=== PATIENT | male | born 1980 | race Caucasian/White ===

== ENCOUNTER 2020-10-29 07:04 | Outpatient (REF) | payer OTHER, SELFPAY ==
[2020-10-29 07:47] LABS: MANUAL DIFF FLAG NO
[2020-10-29 07:58] LABS: Basophils Absolute Auto 0.1 X10*3/uL (0.0-0.2); Basophils Percent Auto 1.2 % (0-2); Eosinophils Absolute Auto 0.1 X10*3/uL (0.0-0.4); Hemoglobin 14.4 g/dl (14.0-18.0); Imm Gran Abs Auto 0.03 X10*3/uL (0.00-0.03); Imm Gran Pct Auto 0.6 % (0.0-0.4); Lymphocytes Percent Auto 40.7 % (20-40); Mean Corpuscular HGB Conc 33.5 g/dl (31.0-36.0); Mean Corpuscular Hemoglobin 30.2 pg (27.0-33.0); Mean Corpuscular Volume 90.1 fL (80-98); Mean Platelet Volume 11.3 fL (9.4-12.4); Monocytes Absolute Auto 0.5 X10*3/uL (0.1-1.2); Neutrophils Absolute Auto 2.2 X10*3/uL (2.0-8.3); Neutrophils Percent Auto 44.5 % (45-73); Platelet Count 269 X10*3/uL (160-400); Red Blood Count 4.77 X10*6/uL (4.60-5.80); Red Cell Distribution Width 12.2 % (11.0-16.0); White Blood Count 4.9 X10*3/uL (4.8-10.8)
[2020-10-29 08:15] LABS: Glucose Urine UA NEG (NEG); Leukocyte Esterase Urine NEG (NEG); Nitrite Urine NEG (NEG); Specific Gravity - Urine 1.025 (1.005-1.025); Urine Blood NEG (NEG); Urine Ketones NEG (NEG); Urine Protein NEG (NEG-TRACE)
[2020-10-29 08:20] LABS: Appearance Urine CLEAR; Color Urine YELLOW
[2020-10-29 08:22] LABS: Alanine Aminotransferase 21 U/L (0-40); Albumin Level 4.5 g/dL (3.5-5.0); Alkaline Phosphatase 41 U/L (39-117); Anion Gap 13 (12-20); Aspartate Amino Transferase 15 U/L (5-37); Bilirubin Total 0.6 mg/dL (0.0-1.0); Blood Urea Nitrogen 12 mg/dL (9-16); Calcium 9.1 mg/dL (8.4-10.2); Carbon Dioxide 26 mmol/L (22-29); Chloride 105 mmol/L (96-108); Cholesterol 206 mg/dL; Estimated Glomerular Filt Rate > 60; Glucose Fasting 93 mg/dL (60-99); HDL Cholesterol 43 mg/dL; LDL Cholesterol Calculated 143 mg/dl; Potassium 4.3 mmol/L (3.3-5.1); Sodium 140 mmol/L (135-145); Total Protein 6.8 g/dL (6.5-8.0); Triglycerides 104 mg/dL
== END 2020-10-29 07:05 | disposition home or self-care (01) ==
LOC: HO.LAB 07:04
PROVIDERS: PCP Internal Medicine; Visit Provider Internal Medicine
DX: Z00.00 Encounter for general adult medical examination without abnormal findings (principal); E78.00 Pure hypercholesterolemia, unspecified
CPT/HCPCS: 36415; 80053; 80061; 81003; 85025

== ENCOUNTER 2022-10-22 10:13 | Outpatient (REF) | payer OTHER, SELFPAY ==
[2022-10-22 10:16] LABS: MANUAL DIFF FLAG NO
[2022-10-22 10:54] LABS: Appearance Urine Clear; Color Urine Yellow; Glucose Urine UA Negative (Negative); Leukocyte Esterase Urine Negative (Negative); Nitrite Urine Negative (Negative); PH 6.5 (5.0-9.0); Specific Gravity - Urine <= 1.005 (1.005-1.025); Urine Blood Negative (Negative); Urine Ketones Negative (Negative); Urine Protein Negative (Neg-Trace)
[2022-10-22 11:04] LABS: Basophils Absolute Auto 0.1 X10*3/uL (0.0-0.2); Eosinophils Absolute Auto 0.2 X10*3/uL (0.0-0.4); Eosinophils Percent Auto 2.4 % (0-4); Hematocrit 46.5 % (42.0-52.0); Hemoglobin 15.5 g/dl (14.0-18.0); Imm Gran Abs Auto 0.05 X10*3/uL (0.00-0.03); Imm Gran Pct Auto 0.7 % (0.0-0.4); Lymphocytes Absolute Auto 2.5 X10*3/uL (1.2-4.9); Lymphocytes Percent Auto 36.3 % (20-40); Mean Corpuscular HGB Conc 33.3 g/dl (31.0-36.0); Mean Corpuscular Hemoglobin 30.2 pg (27.0-33.0); Mean Corpuscular Volume 90.6 fL (80.0-98.0); Mean Platelet Volume 11.5 fL (9.4-12.4); Monocytes Absolute Auto 0.8 X10*3/uL (0.1-1.2); Monocytes Percent Auto 11.9 % (2-11); Neutrophils Absolute Auto 3.2 x10*3/uL (2.0-8.3); Neutrophils Percent Auto 47.7 % (45-73); Platelet Count 301 X10*3/uL (160-400); Red Blood Count 5.13 X10*6/uL (4.60-5.80); White Blood Count 6.8 X10*3/uL (4.8-10.8)
[2022-10-22 11:09] LABS: Alanine Aminotransferase 33 U/L (0-40); Albumin Level 4.7 g/dL (3.5-5.0); Alkaline Phosphatase 49 U/L (39-117); Anion Gap 13 (12-20); Aspartate Amino Transferase 23 U/L (5-37); Blood Urea Nitrogen 11 mg/dL (9-16); Calcium 9.9 mg/dL (8.4-10.2); Carbon Dioxide 27 mmol/L (22-29); Chloride 104 mmol/L (96-108); Cholesterol 230 mg/dL; Estimated Glomerular Filt Rate > 60; Glucose Fasting 98 mg/dL (60-99); HDL Cholesterol 39 mg/dL; LDL Cholesterol Calculated 162 mg/dl; Potassium 4.5 mmol/L (3.3-5.1); Sodium 139 mmol/L (135-145); Total Protein 7.1 g/dL (6.5-8.0); Triglycerides 149 mg/dL
== END 2022-10-22 10:14 | disposition home or self-care (01) ==
LOC: HO.LNP 10:13
PROVIDERS: Visit Provider Internal Medicine
DX: Z00.00 Encounter for general adult medical examination without abnormal findings (principal); Z12.5 Encounter for screening for malignant neoplasm of prostate; E78.00 Pure hypercholesterolemia, unspecified
CPT/HCPCS: 80053; 80061; 81003; 84153; 85025

== ENCOUNTER 2024-05-04 11:26 | Outpatient (REF) | payer OTHER, SELFPAY ==
[2024-05-04 11:30] LABS: MANUAL DIFF FLAG NO
[2024-05-04 11:36] LABS: Basophils Absolute Auto 0.1 X10*3/uL (0.0-0.2); Basophils Percent Auto 1.4 % (0-2); Eosinophils Absolute Auto 0.1 X10*3/uL (0.0-0.4); Eosinophils Percent Auto 2.3 % (0-4); Hematocrit 45.4 % (42.0-52.0); Hemoglobin 15.5 g/dl (14.0-18.0); Imm Gran Abs Auto 0.02 X10*3/uL (0.00-0.03); Imm Gran Pct Auto 0.3 % (0.0-0.4); Lymphocytes Absolute Auto 2.1 X10*3/uL (1.2-4.9); Lymphocytes Percent Auto 36.4 % (20-40); Mean Corpuscular HGB Conc 34.1 g/dl (31.0-36.0); Mean Corpuscular Hemoglobin 30.8 pg (27.0-33.0); Mean Corpuscular Volume 90.1 fL (80.0-98.0); Mean Platelet Volume 11.4 fL (9.4-12.4); Monocytes Absolute Auto 0.7 X10*3/uL (0.1-1.2); Monocytes Percent Auto 12.9 % (2-11); Neutrophils Absolute Auto 2.7 x10*3/uL (2.0-8.3); Neutrophils Percent Auto 46.7 % (45-73); Platelet Count 274 X10*3/uL (160-400); Red Blood Count 5.04 X10*6/uL (4.60-5.80); Red Cell Distribution Width 12.7 % (11.0-16.0); White Blood Count 5.7 X10*3/uL (4.8-10.8)
[2024-05-04 11:40] LABS: Appearance Urine Clear; Color Urine Yellow; Glucose Urine UA Negative (Negative); Leukocyte Esterase Urine Negative (Negative); Nitrite Urine Negative (Negative); PH 5.5 (5.0-9.0); Urine Blood Negative (Negative); Urine Ketones Negative (Negative); Urine Protein Negative (Neg-Trace)
[2024-05-04 11:46] LABS: Bacteria Urine None Seen (None Seen); Hyaline Casts Urine 0-2 /LPF (0-2); RBC Urine 0-2 /HPF (0-2); Squamous Epithelial Cell Urine 0-2 /HPF (0-2); WBC Urine 0-5 /HPF (0-5)
[2024-05-04 11:48] LABS: Alanine Aminotransferase 27 U/L (0-40); Albumin Level 4.6 g/dL (3.5-5.0); Alkaline Phosphatase 42 U/L (39-117); Anion Gap 11 (12-20); Aspartate Amino Transferase 21 U/L (5-37); Bilirubin Total 0.7 mg/dL (0.0-1.0); Blood Urea Nitrogen 15 mg/dL (9-16); Calcium 9.4 mg/dL (8.4-10.2); Carbon Dioxide 26 mmol/L (22-29); Chloride 107 mmol/L (96-108); Cholesterol 201 mg/dL (<200); Estimated Glomerular Filt Rate > 60; Glucose Fasting 96 mg/dL (60-99); HDL Cholesterol 42 mg/dL (>40); LDL Cholesterol Calculated 128 mg/dL (<100); Potassium 4.1 mmol/L (3.3-5.1); Sodium 140 mmol/L (135-145); Total Protein 7.1 g/dL (6.5-8.0); Triglycerides 156 mg/dL (<150)
== END 2024-05-04 11:27 | disposition home or self-care (01) ==
LOC: HO.LNP 11:26
PROVIDERS: Visit Provider Internal Medicine
DX: Z00.00 Encounter for general adult medical examination without abnormal findings (principal); E78.00 Pure hypercholesterolemia, unspecified
CPT/HCPCS: 80053; 80061; 81001; 85025

== ENCOUNTER 2024-05-11 14:44 | Outpatient (REF) | payer OTHER, SELFPAY ==
--- NOTE | ~2024-05-11 | XR_ITS ---
EXAMINATION: XR FINGER, RIGHT CLINICAL INFORMATION: Right finger mass COMPARISON: None available. TECHNIQUE: 4 views of the right middle finger including AP view of the hand FINDINGS: Middle finger: Slight prominence of the soft tissues dorsally at the end CP joint. No calcification Bones joints and soft tissues otherwise unremarkable. On the AP view of the hand there is mild arthrosis of the triscaphoid joint manifested by a subchondral cyst at the base of the trapezium XR/XR finger RT min 2V IMPRESSION: Slight prominence of the soft tissues dorsally at the MCP joint of the middle finger. This could reflect a soft tissue mass or normal variation. Electronically signed by: Jayro Arias MD 05/14/2024 08:36 PM EDT
[2024-05-11 16:02] LABS: PSA,Total (Free>4and<10) 0.86 ng/mL (0.00-4.00)
== END 2024-05-11 14:45 | disposition home or self-care (01) ==
LOC: HO.XRAY 14:44
PROVIDERS: PCP Internal Medicine; Visit Provider Internal Medicine
DX: R22.31 Localized swelling, mass and lump, right upper limb (principal); Z12.5 Encounter for screening for malignant neoplasm of prostate; E78.00 Pure hypercholesterolemia, unspecified; Z00.00 Encounter for general adult medical examination without abnormal findings
CPT/HCPCS: 36415; 73140; 84153

== ENCOUNTER 2024-06-06 14:32 | Outpatient (AMB) | payer OTHER, SELFPAY ==
--- NOTE | 2024-06-06 14:35 | A.OFFVIS_ITS ---
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 Patient reports it feels tight when making a fist. He reports it has not changed in size or color. Denies numbness or tingling. Denies locking on finger. 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 The patient reports that in October, he noticed this mass, and states that it may have grown a little bit since he noticed it, but states that it has not changed in size for some time. Patient reports that this mass is nonpainful, nontender, and only occasionally bothers him when he ?wax it against something? patient reports that the mass has never opened, does not bleed, and that there is no further evidence of any sort of infection. No numbness or tingling in the right upper extremity. No other acute complaints or concerns at this time. 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 Neuro: Normal sensation of the tips of all digits of the right hand at this time. Vascular: Cap refill brisk Pain: No tenderness to palpation at or about the mass present on the dorsal aspect of the right middle finger PIP joint Patient reports no pain with range of motion ROM: Patient is able to make a closed fist and extend all digits of the right hand fully and without difficulty Skin: No lacerations or abrasions. General: There is noted to be a small, approximately 0.5 cm by 1 cm mass noted on the dorsal aspect of the PIP joint of the right middle finger Mass is firm to palpation, non fluctuant, does not feel fluid filled, but rather solid No ecchymosis, erythema, or evidence of infection. No telangiectasias noted Psych: Appears grossly normal Affect normal Attitude cooperative Results Reviewed Results Reviewed: X-rays obtained on 05/11/2024 and independently reviewed by me, García Flores, demonstrate soft tissue prominence at the level of the mass, but no fracture or acute bony abnormality. Assessment & Plan Assessment & Plan (1) Mass of finger of right hand: Code(s): R22.31 - Localized swelling, mass and lump, right upper limb Category: Medical Plan 1. Mass of right middle finger Present since approximately October At this time, my index of suspicion that this mass is a ganglion cyst is quite low, due to the firm, solid nature of the mass and lack of fluctuance Due to this, the patient is referred to Dr. Teixeira for further evaluation and discussion of treatment options Patient is amenable to this plan Patient will follow-up with Dr. Teixeira in next available appointment, sooner with any acute concerns Coding Level of Care Code New Pt Level 3 (42454) Diagnoses Mass of finger of right hand R22.31
[2024-06-06 14:40] VITALS: BMI 32.3
== END 2024-06-06 15:12 | disposition home or self-care (01) ==
PROVIDERS: PCP Internal Medicine
DX: R22.31 Localized swelling, mass and lump, right upper limb (principal)
CPT/HCPCS: 99203

== ENCOUNTER → 2024-06-06 14:32 | Outpatient (BNVA) | payer OTHER, SELFPAY | PROVIDERS: PCP Internal Medicine ==

== ENCOUNTER 2024-06-28 09:33 | Outpatient (AMB) | payer OTHER, SELFPAY ==
--- NOTE | 2024-06-28 09:34 | A.OFFVIS_ITS ---
Intake Visit Reasons: OV-Right middle finger mass Intake Note: Thien is a 43 year old right hand dominant male who presents today for evaluation of a right middle finger mass at the DIP joint, first noticed about 5-6 months ago. Patient reports it feels tight when making a fist. He reports it has not changed in size or color. Denies numbness or tingling. Denies locking on finger. Allergies No Known Allergies Allergy (Verified 06/06/24 14:39) HPI HPI OV-Right middle finger mass: Details: Thien is a 43 year old right hand dominant man who presents for a right middle finger mass. He complains of a mass on the dorsal aspect of of his middle finger PIP joint. He says this has been present for ~8 months now. He denies any drainage or pain, and says it has not been increasing in size. He says it only hurts him if he hits it against a surface. He says he feels some tightness with prolonged activity when he lets his hands hang, such as on a hike. He denies any prior treatment options He denies any numbness, tingling, locking, or catching. 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 Review of Systems Const All systems reviewed & are unremarkable except as noted in HPI and below Physical Exam Const General: cooperative, healthy appearing and no acute distress Orientation/consciousness: patient oriented x3 HEENT Head: Yes normocephalic and Yes atraumatic Eyes EOM: EOMs intact bilaterally Resp Effort & Inspection: normal respiratory effort and able to speak in complete sentences Cardio Jugular venous distension: no JVD Skin General skin exam: turgor normal Rashes: no rashes Neuro General: patient oriented x3 Extrem Other: Evaluation of Right Upper Extremity: The patient is alert, oriented, and in no acute distress Neuro: Median, Ulnar, Radial nerves motor and sensory intact and sensation is normal to the tips of all digits Vascular: Cap refill brisk ROM: He can make a fist and extend all his digits No locking or catching Skin: No lacerations or abrasions. General: No Ecchymosis. No Erythema or evidence of infection. There is a mass on the dorsal aspect of the middle finger PIP joint, measuring ~1.2cm in diameter. This is non-tender & and the skin feels slightly mobile over the mass. Radiographs: 3 views of the right hand form 05/11/24 were reviewed by me today in clinic. They show no fractures or dislocations. There are no bony masses, and there appears to be a soft tissue mass over the dorsal aspect of the middle finger PIP joint. Psych Appearance: grossly normal Affect: normal affect Attitude: cooperative Assessment & Plan Assessment & Plan (1) Mass of finger of right hand: Code(s): R22.31 - Localized swelling, mass and lump, right upper limb Category: Medical Plan Assessment & Plan: 1. Right middle finger mass Dorsal aspect of the PIP joint Measuring ~1.2cm in diameter I educated him about this condition I discussed operative and non-operative treatment options The patient would like to proceed with surgery The risks and benefits of operative treatment were discussed with the patient and the patient wishes to proceed with surgery. These risks include, but are not limited to risk of damage to blood vessels, nerves, tendons, infection, recurrence, incomplete relief of preoperative symptoms, persistent pain, possible need for further surgery and the risks associated with regional blocks and anesthesia. The plan is to take the patient to the operating room sometime in the next few weeks for the following procedures: 1. Right middle finger dorsal mass excision, under local All of the preoperative paperwork including the consent was reviewed today. All the patient's questions were answered. The patient understands that they will be contacted by our manufacturing scheduler soon to schedule this procedure He denies Diabetes, blood thinners, asthma, heart, lung, kidney issues Scribed for Adelaide Teixeira MD by Masood Conde paramedical aide, on 06/28/24 at 10:00 AM, EST. Coding Level of Care Code Est Pt Level 4 (62319) Diagnoses Mass of finger of right hand R22.31
== END 2024-06-28 10:33 | disposition home or self-care (01) ==
PROVIDERS: PCP Internal Medicine; Visit Provider Orthopaedic Surgery
DX: R22.31 Localized swelling, mass and lump, right upper limb (principal)
CPT/HCPCS: 99214

== ENCOUNTER → 2024-06-28 09:33 | Outpatient (BNVA) | payer OTHER, SELFPAY | PROVIDERS: PCP Internal Medicine; Visit Provider Orthopaedic Surgery ==

== ENCOUNTER 2024-07-31 07:45 | Day surgery (SDC) | payer OTHER, SELFPAY ==
[2024-07-31 08:24] VITALS: BP 154/89; PULSE 72; RESP 18; TEMP 36.1; O2SAT 98; BMI 32.6
--- NOTE | 2024-07-31 10:01 | MHC.SHP ---
Pre-Procedural Eval Section A - 24 Hr Update-Section A only Date of Service: 07/31/24 The patient is an INPATIENT: No Changes since office visit: No Cold of Flu in the past 2 weeks, No New Medical Problems, No Changes in Medication and No Patient answered all questions The patient has been examined within 24 hours of the surgical procedure. The History & Physical has been completed within 30 days and I have reviewed it.: Yes Section B - Complete if H&P > 30 days Chief Complaint: Localized swelling, mass and lump, right upper mo Allergies: Allergies Allergy/AdvReac Type Severity Reaction Status Date / Time No Known Allergies Allergy Verified 06/06/24 14:39 Plan Diagnosis/Plan: Unchanged I have reviewed the history and physical and performed a pertinent physical examination on my patient. No changes have occurred unless specified. Time Spent With Patient Time: Total time managing care of this patient today ____ minutes.
--- NOTE | 2024-07-31 10:02 | P.OP_ITS ---
Operative Note Operative Note Date of Service: 07/31/24 Narrative: Operative Note Preop diagnosis: 1. Right middle finger soft tissue mass, dorsal aspect of PIP joint Postop diagnosis: same Procedure: 1. Right middle finger soft tissue mass excisional biopsy Surgeon: Adelaide Teixeira MD Vice President Media Relations: None Anesthesia: digital block using 1% lidocaine with epinephrine Findings: A white fibrous soft tissue mass was found dorsal to the middle finger PIP joint. It was not fluid filled. It was adherent to the dorsal aspect of the extensor mechanism and before it was excised it measured proximally 1 cm in length by 1.5 cm in width by perhaps 3-[address] idalmis active extension of the middle finger after excision of the mass. EBL: Less than 5 mL Tourniquet time: None Specimens: Right middle finger soft tissue mass sent for histopathology Complications: None Disposition: Brought to recovery room in stable condition Plan: Follow-up for 10-14 days for wound check and to check pathology The sutures should remain in place for between 2 and 3 weeks. He is seen at about 2 weeks, we can try removing every other suture before determining whether or not to remove the remaining sutures. Indications: The patient is 44 years old, with a soft tissue mass over the dorsal aspect of his right middle finger PIP joint . The risks and benefits of operative treatment including but not limited to risk of damage to blood vessels, nerves, tendons, infection, persistent pain, persistent symptoms, recurrence or possible need for additional surgery were discussed with the patient and the patient wishes to proceed with surgery. Procedure: Once consent was obtained a digital block was performed in the preop area using a combination of 1% lidocaine with epinephrine. The patient was then brought back to the operating suite and placed on the operative table in supine position. A tourniquet was applied to the proximal aspect of the right upper extremity and the limb was prepped and draped in a standard surgical fashion. Once assured that we had a good block, I made a dorsal longitudinal incision over the PIP joint of the right middle finger. The incision was made through the skin the subcutaneous tissues using a 15. Blade. I then carefully dissected down to the level of the soft tissue mass using tenotomy and iris scissors. A white fibrous soft tissue mass was found dorsal to the middle finger PIP joint. It was not fluid filled. It was adherent to the dorsal aspect of the extensor mechanism and before it was excised it measured proximally 1 cm in length by 1.5 cm in width by perhaps 3-4 mm in thickness. I carefully mobilized the mass from the dorsal aspect of the extensor mechanism using tenotomy and iris scissors. The mass was fairly adherent to the extensor mechanism with white fibrous adhesions. The mass was removed from the patient and placed on the back table to be sent for histopathology. Strong active extension of the middle finger was performed by the patient after excision of the mass and while on the table. No other masses were appreciated. Once satisfied with our excisional biopsy the wound was copiously irrigated with normal saline and hemostasis was obtained with a brief period of local pressure. The skin edges were reapproximated with some 4.0 Prolene suture material and a sterile dressing was applied. The patient appears to have tolerated the procedure well and with no comp lications. All digits were well vascularized at the conclusion of the case.
[2024-07-31 11:43] VITALS: BP 136/84; PULSE 82; RESP 20; O2SAT 99
== END 2024-07-31 11:43 | disposition home or self-care (01) ==
PROVIDERS: PCP Internal Medicine; Visit Provider Orthopaedic Surgery
PROC: (CPT 26111; principal; 2024-07-31 09:40)
DX: R22.31 Localized swelling, mass and lump, right upper limb (principal); M79.89 Other specified soft tissue disorders
CPT/HCPCS: 26111; 88304; 88305; J0171; J2003

== ENCOUNTER → 2024-07-31 07:45 | Outpatient (BNV) | payer OTHER, SELFPAY | PROVIDERS: PCP Internal Medicine; Visit Provider Orthopaedic Surgery | DX: R22.31 Localized swelling, mass and lump, right upper limb (principal) | CPT/HCPCS: 26111 ==

== ENCOUNTER 2024-08-15 12:32 | Outpatient (AMB) | payer OTHER, SELFPAY ==
--- NOTE | 2024-08-15 12:40 | A.OFFVIS_ITS ---
Vital Signs 08/15/24 13:05 Height 5 ft 6 in Weight 202 lb BMI 32.6 Intake Visit Reasons: PO RT MF dorsal PIP mass exc 07/31/24 AR Intake Note: Thien is a 43 yo right hand dominant male who presents today post operatively s/p right middle finger dorsal PIP mass excision done 07/31/[address] Teixeira. Denies numbness, tingling, or finger locking. Patient is doing well. He has returned to work. Sutures removed in office today and steri strips applied. Allergies No Known Allergies Allergy (Verified 08/15/24 13:06) HPI HPI PO RT MF dorsal PIP mass exc 07/31/24 AR: Details: Thien is a 43 year old right hand dominant man who returns S/P right middle finger excision of mass, DOS: 07/31/24 He says he is doing well overall and denies any pain He denies any numbness, tingling, locking, or catching. He says he has already returned to work at this time, without issue. 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 Sutures removed and Steri-Strips applied He can make a fist and extend all his digits Sensation is intact Cap refill is brisk Pathology report 07/31/24 Diagnosis Soft tissue, right middle finger, excision: Fragments of bland dense fibrous tissue with focal myxoid change; negative for malignancy. 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 No features of malignancy are seen Psych Appearance: grossly normal Affect: normal affect Attitude: cooperative Assessment & Plan Assessment & Plan (1) Fibroma of finger of right hand: Comment: R Code(s): D21.11 - Benign neoplasm of connective and other soft tissue of right upper limb, including shoulder Category: Medical Plan Assessment & Plan: 1. Right middle finger tendon sheath fibroma, S/P excision DOS: 07/31/24 The patient appears to be doing well post-operatively I educated him about the post-operative course I explained the signs and symptoms of infection I discussed activity modifications, he is to lift nothing heavier than a cellphone for the next two weeks He will perform gentle ROM exercises at home He should avoid any underwater activities for the next 5 days He should gently massage about the incision site to reduce the risk of hypersensitivity He can follow up prn Scribed for Adelaide Teixeira MD by Masood Conde, medical oncology physician, on 08/15/24 at 1:20 PM, EST. Coding Level of Care Code Global (47401) Diagnoses Fibroma of finger of right hand D21.11
[2024-08-15 13:05] VITALS: BMI 32.6
== END 2024-08-15 15:11 | disposition home or self-care (01) ==
PROVIDERS: PCP Internal Medicine; Visit Provider Orthopaedic Surgery
DX: D21.11 Benign neoplasm of connective and other soft tissue of right upper limb, including shoulder (principal)
CPT/HCPCS: 99024

== ENCOUNTER → 2024-08-15 12:32 | Outpatient (BNVA) | payer OTHER, SELFPAY | PROVIDERS: PCP Internal Medicine; Visit Provider Orthopaedic Surgery ==

== ENCOUNTER 2024-09-29 09:18 | Day surgery (SDC) | payer OTHER, SELFPAY ==
[2024-09-27 13:41] VITALS: BMI 32.6
--- NOTE | 2024-09-28 10:15 | P.CONAN_ITS ---
Documented by User: Rebecca Stevenson NP 09/28/24 10:15 HPI - Anesthesia Eval Consult details Narrative: 44yo M for Colonoscopy PMFSH Active Problems Active Problems: All Active Problems Fibroma of finger of right hand (Acute) Mass of finger of right hand (Acute) Past Medical History Medical History Renal calculi Surgical History Surgical History (Updated 09/29/24 @ 11:20 by Lacey Ledezma MD) [place] teeth extracted Hx of hand surgery Social History Social History Patient Tobacco Use Status: Never used Tobacco Use of substances other than those prescribed or required for medical reasons: Yes Substance Use Type Other:: last smoked yesterday Substance Use Frequency: Daily Are you DNR?: No Advance Directives: No Advance Directives Information Provided: Yes Current occupational status: employed 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, 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 Meds Allergies Allergy/AdvReac Type Severity Reaction Status Date / Time No Known Allergies Allergy Verified 09/29/24 10:16 Home Medications ?Medication ?Instructions ?Recorded ?Confirmed ?Last Taken ?Type No Known Home Meds 09/27/24 09/29/24 Unknown History Exam Height,Weight and Vital Signs: Height 5 ft 6 in Weight 91.626 kg Assessment and Plan Assessment Anesthesia Assessment: Chart Reviewed Documented by User: Lacey Ledezma MD 09/29/24 11:22 PMFSH Active Problems Active Problems: All Active Problems Fibroma of finger of right hand (Acute) Mass of finger of right hand (Acute) Daily Marijuana. Last yesterday 09/28/24 Past Medical History Medical History Renal calculi Family History Family history of problems with anesthesia: No Surgical History Surgical History (Updated 09/29/24 @ 11:20 by Lacey Ledezma MD) [place] teeth extracted Hx of hand surgery History of Problems with Anesthesia: No Social History Social History Patient Tobacco Use Status: Never used Tobacco Use of substances other than those prescribed or required for medical reasons: Yes Substance Use Type Other:: last smoked yesterday Substance Use Frequency: Daily Are you DNR?: No Advance Directives: No Advance Directives Information Provided: Yes Current occupational status: employed 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 Top front implant. D enies broken or loose teeth) Heart: RRR Lungs: CTAB Assessment and Plan Assessment Anesthesia Assessment: Anesthesia Plan Discussed and Chart Reviewed Final Anesthetic Review Family History of Problems with Anesthesia: No History of Problems with Anesthesia: No NPO: Yes ASA Class: II Final Preanesthetic Review: No Changes in Pt Med Stat, Meds/Allgs Chart Reviewed, Consent Obtained/Reviewed and Anes Risks/Benef Reviewed Patient Risk: Low Procedure Risk: Low Assessment/Block/Sedation in SS: Assess/Block/Sedation-SS Anesthetic Plan Anesthetic Plan: TIVA Disposition: Standard PACU
--- OUTSIDE RECORDS SUMMARY | 2024-09-29 09:20 | XMS_ITS ---
Author Organization [facility] Address [address] [place] [phone] Care Team Providers Care Book Or Script Editor Name Role Phone Ntahan IYER, Miguel Primary Care Provider Vinod Aguirre [phone] ALLERGIES No Known Allergies REASON FOR VISIT Patient presents today for heme positive stools SOCIAL HISTORY Tobacco Use: Social History Observation Description Date Details (start date - stop date) Never Smoker NA - NA Sex Assigned At : Social History Observation Description Sex Assigned At Unknown Tobacco Use/Smoking Question Answer Notes Patient is a nonsmoker Alcohol Screen Question Answer Notes Did you have a drink containing alcohol in the p ast year? No Points 0 Interpretation Negative PROBLEMS Problem Type ICD Code Onset Dates Problem Status W/U Status Risk SNOMED Code Notes Problem Other fecal abnormalities (R19.5) Active confirmed Abnormal feces (676658712) VITAL SIGNS BMI 32.60 kg/m2 05/30/2024 Blood pressure systolic 00 mm Hg 05/30/20 24 Blood pressure diastolic 00 mm Hg 024 Height 5 ft 6 in in 05/30/2024 Weight 202 lbs 05/30/2024 Encounters Encounter Location Date Provider Diagnosis [facility] [address] [place] [phone] 05/30/2024 Vinod Burgess Other fecal abnormalities R19.5 ASSESSMENTS Encounter Date Diagnosis Assessment Notes Treatment Notes Treatment Clinical Notes 05/30/2024 Other fecal abnormalities (ICD-10 - R19.5) PLAN OF TREATMENT Future Test Test Name Order Date COLONOSCOPY 05/30/2024 Next Appt Details Follow Up: prn, Reason: Provider Name:Vinod Burgess 09/29/2024 10:30:00 AM, [address] [place] [address] , [place], [place], [phone], Progress Notes * Examination Category Sub-Category Detail Notes General Examination GENERAL APPEARANCE: pleasant , well nourished, well developed, in no acute distress HEAD: EYES: sclera non-icteric EARS: NOSE: THROAT: NECK/THYROID: no cervical lymphade nopathy, neck supple HEART: S1, S2 normal CHEST: LUNGS: clear to auscultatio n bilaterally ABDOMEN: normal bowel sounds, no guarding or rigidity, no guarding or rigidity, no masses palpable, soft, nontender, nondistended NEUROLOGIC: alert and oriented SKIN: nonjaundiced, no spi chan angiomata EXTREMITIES: no edema PERIPHERAL PULSES: BACK: BREASTS: MUSCULOSKELETAL: MALE GENITOURINARY: LYMPH NODES: RECTAL EXAM: FEMALE GENITOURINARY: ORAL CAVITY: mucosa moist
--- OUTSIDE RECORDS SUMMARY | 2024-09-29 09:20 | XMS_ITS ---
Author Organization [facility] Address [address] [place] [address] Care Team Providers Care Airplane Technician Name Role Phone Nathan IYER, Miguel Primary Care Provider Vinod Aguirre Unavailable [phone] REASON FOR VISIT other fecal abnormalities Encounters Encounter Location Date Provider Diagnosis [facility] [address] [place] [phone] 09/29/2024 Vinod Burgess PLAN OF TREATMENT Next Appt Details Provider Name:Vinod Burgess , 09/29/2024 10:30:00 AM, [address] [place] [address] , [place], [place], [phone],
--- OUTSIDE RECORDS SUMMARY | 2024-09-29 09:21 | XMS_ITS | Patient Health Record ---
Author Organization [facility] Address [address] [place] [phone] Care Team Providers Care Plant Operations Worker Name Role Phone Miguel Evans MD Primary Care Provider Vinod Aguirre [phone] ALLERGIES No Known Allergies REASON FOR REFERRAL No Information SOCIAL HISTORY Tobacco Use: Social History Observation [...] fecal abnormalities (R19.5) Active confirmed Abnormal feces (619297603) VITAL SIGNS Blood pressure diastolic 00 mm Hg 05/30/2024 Height 5 ft 6 in in 05/30/2024 Blood pressure systolic 00 mm Hg 05/30/2024 Weight 202 lbs 05/30/2024 BMI 32.60 kg/m2 05/30/2024 Encounters Encounter Location Date Provider Diagnosis [facility] [place] [address] [place], [place] [phone] 09/29/2024 Vinod Burgess [facility] [address] [place] [phone] 05/30/2024 Vinod Burgess Other fecal abnormalities R19.5 ASSESSMENTS Encounter Date Diagnosis Assessment Notes Treatment Notes Treatment Clinical Notes 05/30/2024 Other fecal abnormalities (ICD-10 - R19.5) PLAN OF TREATMENT Future Test Test Name Order Date COLONOSCOPY 05/30/2024 Next Appt Details Provider Name:Vinod Burgess , 09/29/2024 10:30:00 AM, [address] [place] [address] , [place], [place], [phone], Insurance Providers Payer Name Payer Address Payer Phone Subscriber Number Group Number Insured Name Patient Relationship to Insured Coverage Start Date Coverage End Date [facility] [address] [place] [phone] [id number] TIMO BANDA Self - patient is the insured MEDICAL (GENERAL) HISTORY Medical History History ICD Code Kidney stone Denies GA,DM,CVA,Lung disease,renal dise ase Surgical History Surgery Date(Month/Year)
--- OUTSIDE RECORDS SUMMARY | 2024-09-29 09:21 | XMS_ITS | Patient Health Record ---
Author Organization Miguel Evans MD Address [address] [place], [place] [phone] Care Team Providers Care Manager Of Production Name Role Phone Miguel Evans Primary Care Provider ALLERGIES No Known Allergies RESULTS Component Value Reference Range Notes Complete Blood Count Auto Di ff Reviewed date:05/04/2024 12:34:45 PM Interpretation: Performing Lab:[facility], [address] [place] [phone] Notes/Report: White Blood Count 5.7 4.8-10.8 X10*3/uL [...] NRBC Abs Auto 0.000 0.0-0.012 X10*3/uL Comprehensive [place]. Panel Fa Reviewed date:05/04/2024 12:29:22 PM Interpretation: Performing Lab:[address] [phone] Notes/Report: Sodium 140 135-145 mmol/L Potassium 4.1 3.3-5.1 mmol/L Chloride 107 96-108 mmol/L Carbon Dioxide 26 22-29 mmol/L Anion Gap 11 12-20 Blood Urea Nitrogen 15 9-16 mg/dL Creatinine 0.95 0.5-1.4 mg/dL Estimated Glomerular Filt Rate > 60 NOTE: For -[place] individuals, multiply the result by 1.210. Chronic [...] Panel Reviewed date:05/04/2024 12:27:29 PM Interpretation: Performing Lab:[facility], [address] [place] [phone] Notes/Report: Triglycerides 156 <150 mg/dL Desirable Triglyceride: [...] t Reviewed date:05/04/2024 12:35:26 PM Interpretation: Performing Lab:[facility], [address] [place] [phone] Notes/Report: Urine, Clean Catch Color Urine Yellow Appearance Urine Clear PH 5.5 5.0-9.0 Glucose Urine UA Negative Negative mg/dL Urine Blood Negative Negative Specific [place] - Urine 1.010 1.005-1.025 Urine Protein Negative Neg-Trace mg/dL Urine Ketones Negative Negative mg/dL Nitrite Urine Negative Negative Leukocyte Esterase Urine Negative Negative RBC Urine 0-2 0-2 /HPF WBC Urine 0-5 0-5 /HPF Squamous Epithelial Cell Urine 0-2 0-2 /HPF Bacteria Urine None Seen None Seen Hyaline Casts Urine 0-2 0-2 /LPF Hold Green Gel Reviewed date:05/11/2024 04:04:02 PM Interpretation: Performing Lab:[facility], [address] [place] [phone] Notes/Report: Hold Green Gel See Note Specimen held untested for 24 hours; Call to request Chemistry testing. Occult Blood, Stool, Guaiac Reviewed date:05/11/2024 03:32:14 PM Interpretation:Positive Performing Lab: Notes/Report: Positive Occult Blood, Stool, Guaiac Pos PSA,Total (Free>4and<10) Reviewed date:05/12/2024 09:17:14 AM Interpretation:left message for patient to call Performing Lab:[facility], [address] [place] [phone] Notes/Report: PSA,Total (Free>4and<10) 0.86 0.00-4.00 ng/mL A Free PSA was not performed: The percentage of Free PSA can be used to enhance the differentiation of prostate cancer from benign prostatic disease in subjects whose PSA levels are between 4.0 and 10.0 ng/mL. For subjects whose PSA levels are below 4.0 or above 10.0 ng/mL, the risk of prostate cancer is determined on the basis of the PSA alone. Therefore the % Free PSA is recommended only for those subjects whose PSA levels are between 4.0 and 10.0 ng/mL. PSA methodology: Rashid Alinity i Chemiluminescent Microparticle Immunoassay (CMIA) XR finger RT min 2V Reviewed date:05/15/2024 08:24:05 AM Interpretation: Performing Lab: Notes/Report: [address] [address] XRay Report Signed Patient: Thien Prabhakar MR#: [id number] 027 : 1980 Acct:[id number] Age/Sex: 43 / M ADM Date: 05/11/24 Loc: [facility] Attending Dr: Miguel Evans MD Ordering Physician: Miguel Evans MD Date of Service: 05/11/24 Procedure(s): XR finger RT min 2V Accession Number(s): [id number] cc: Miguel Evans MD EXAMINATION: XR FINGER, RIGHT CLINICAL INFORMATION: Right finger mass COMPARISON: None available. TECHNIQUE: 4 views of the right middle finger including AP view of the hand FINDINGS: Middle finger: Slight prominence of the soft tissues dorsally at the end CP joint. No calcification Bones joints and soft tissues otherwise unremarkable. On the AP view of the hand there is mild arthrosis of the triscaphoid joint manifested by a subchondral cyst at the base of the trapezium XR/XR finger RT min 2V IMPRESSION: Slight prominence of the soft tissues dorsally at the MCP joint of the middle finger. This could reflect a soft tissue mass or normal variation. Electronically signed by: Jayro Arias MD 05/14/2024 08:36 PM EDT Dictated By: Jayro Arias MD Signed By: <Electronically signed by Jyaro Arias MD in [place]> 05/14/242035 DD/ 1450 TD/TT: 05/11/24 1510 Weigh Box Tender: KJ Pathology Reviewed date:08/02/2024 04:23:32 PM Interpretation: Performing Lab:[facility], [address] [place] [phone] Notes/Report: REASON FOR REFERRAL Reason guaiac positive stoo ls Diagnosis 1 Guaiac positive stoo ls (R19.5) Referral Organization Miguel Evans MD Referring Provider First Name Miguel Referring Provider Last Name Nathan Referring Provider Speciality Internal edicine Referred Provider Vinod Burgess Referred Provider Specialty Gastroentero logy General Notes Jayne Mirza 10:09:43 AM EDT > info faxed Yuki Annette 05/15/2024 11:37:47 AM EDT > was told being reviewed by Yuki Davies Annette 05/26/2024 10:12:25 AM EDT > ws told patint is aware of appt Referral Priority Routine Referral Appointment Date 05/30/2024 Reason Fnger mass Diagnosis 1 Finger mass, right ( R22.31) Referral Organization Miguel Evans MD Referring Provider First Name Miguel Referring Provider Last Name Nathan Referring Provider Speciality Internal edicine Referred Provider Adelaide Teixeira Referred Provider Specialty Hand Surgery General Notes Jayne Mirza 08:22:26 AM EDT > info Yuki mcgrath Annette 05/19/2024 09:52:13 AM EDT > was told by office patient is aware of appt Referral Priority Routine Referral Appointment Date 06/06/2024 IMMUNIZATIONS Vaccine Route Administration Date Status Comme nts Flu Vaccine Unknown 10/23/2014 Refused Fluarix Quadrivalent Unknown 10/26/2016 Refused Fluarix Quadrivalent Unknown 11/05/2016 Refused Fluarix Quadrivalent Unknown 11/01/2018 Refused SOCIAL HISTORY Tobacco Use: Social History Observation Description Date Details (start date - stop date) Never Smoker NA - NA Sex Assigned At : Social History Observation Description Sex Assigned At Unknown Tobacco Use/Smoking Question Answer Notes Patient is a nonsmoker Additional Findings: Tobacco Non-User Cu rrent non-smoker, currently using no form of tobacco Alcohol Screen Question Answer Notes Did you have a drink containing alcohol in the p ast year? 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) Active confirmed Problem Low HDL (under 40) (E78.6) Active confirmed 577506760 Problem Elevated LDL cholesterol level (E78.00) Active confirmed 627587153 Problem BMI 31.0-31.9,adult (Z68.31) Active confirmed 016235444 VITAL SIGNS Blood pressure diastolic 80 mm Hg 05/11/2024 shellie ght is down 4 pounds since 11-12-20 Height 67 in 05/11/2024 weight is down 4 pounds since 11-12-20 Blood pressure systolic 124 mm Hg 05/11/2024 weig ht is down 4 pounds since 11-12-20 Weight 199 lbs 05/11/2024 weight is down 4 pounds since 11-12-20 BMI 31.16 kg/m2 05/11/2024 weight is down 4 pounds since 11-12-20 Encounters Encounter Location Date Provider Diagnosis Miguel Evans MD [address] [place] [phone] 05/11/2024 Miguel Evans Elevated LDL cholesterol level E78.00 ; Annual physical exam Z00.00 ; Guaiac positive stools R19.5 ; Finger mass, right R22.31 and Depression screening Z13.31 Miguel Evans MD [address] [place] [phone] 05/04/2024 Miguel Evans Blood tests for routine general physical examination Z00.00 and Elevated LDL cholesterol level E78.00 ASSESSMENTS Encounter Date Diagnosis Assessment Notes Treatment Notes Treatment Clinical Notes 05/11/2024 Annual physical exam (ICD-10 - Z00.00) labs reviewed and discussed with patient 05/11/2024 Elevated LDL cholesterol level (ICD-10 - E78.00) stable, will continue to monitor 05/04/2024 Elevated LDL cholesterol level (ICD-10 - E78.00) 05/04/2024 Blood tests for routine general physical examination (ICD-10 - Z00.00) 05/11/2024 Guaiac positive stools (ICD-10 - R19.5) needs urgent appt for colonoscopy 05/11/2024 Finger mass, right (ICD-10 - R22.31) pending diagnostic testing 05/11/2024 Depression screening (ICD-10 - Z13.31) negative screen PLAN OF TREATMENT Next Appt Details Provider Name:Miguelarlene Petit ier, 05/08/2025 07:45:00 AM, [address] [place] [address] Drive, [address], [place], [place], [phone], Provider Name:Miguel Petit ier, 05/15/2025 02:30:00 PM, [address] [place] [address], [address], [place], [place], [phone], Insurance Providers Payer Name Payer Address Payer Phone Subscriber Number Group Number Insured Name Patient Relationship to Insured Coverage Start Date Coverage End Date [address] [place] [phone] [id number] Thien Prabhakar Self - patient is the insured MEDICAL (GENERAL) HISTORY Medical History History ICD Code Refuses flu shot (2-5-13)
--- OUTSIDE RECORDS SUMMARY | 2024-09-29 09:21 | XMS_ITS ---
Author Organization Miguel Evans MD Address [address] [place], [place] [id number] Care Team Providers Care Pulp Mill Operator Name Role Phone Miguel Evans Primary Care Provider [phone] ALLERGIES No Known Allergies RESULTS Component Value Reference Range Notes Occult Blood, Stool, Guaiac Reviewed date:05/11/2024 03:32:14 PM Interpretation:Positive Performing Lab: Notes/Report: Positive Occult Blood, Stool, Guaiac Pos PSA,Total (Free>4and<10) Reviewed date:05/12/2024 09:17:14 AM Interpretation:left message for patient to call Performing Lab:[facility], [address] [place] [phone] Notes/Report: PSA,Total (Free>4and<10) 0.86 0.00-4.00 ng/mL A [...] date:05/15/2024 08:24:05 AM Interpretation: Performing Lab: Notes/Report: [address] [address] XRay Report Signed Patient: Thien Banda MR#: [id number] : 1980 Acct:[id number] Age/Sex: 43 / M ADM Date: 05/11/24 Loc: HO.[facility] Attending Dr: Miguel Evans MD Ordering Physician: Miguel Evans MD Date of Service: 05/11/24 Procedure(s): XR finger RT min 2V Accession Number(s): [id number] cc: Miguel Evans MD EXAMINATION: XR FINGER, [...] Jayro Arias MD 05/14/2024 08:36 PM EDT RP Dictated By: Jayro Arias MD Signed By: <Electronically signed by Jayro Arias MD in OV> 05/14/242035 DD/ 1450 TD/TT: 05/11/24 1510 Final Installer Inspector: KJ REASON FOR REFERRAL Reason guaiac positive stoo ls Diagnosis 1 Guaiac positive stoo ls (R19.5) Referral Organization Miguel Evans MD Referring Provider First Name Miguel Referring Provider Last Name Nathan Referring Provider Speciality Internal M edicine Referred Provider Vinod Burgess Referred Provider Specialty Gastroentero logy General Notes Jayne Mirza 10:09:43 AM EDT > info faxed , Jayne Mirza 05/15/2024 11:37:47 AM EDT > was told being reviewed by Yuki Davies Annette 05/26/2024 10:12:25 AM EDT > ws told patint is aware of appt Referral Priority Routine Referral Appointment Date 05/30/2024 REASON FOR VISIT annual visit, Draw a PSA SOCIAL HISTORY Tobacco Use: Social History Observation [...] ast year? No Points 0 Interpretation Negative VITAL SIGNS BMI 31.16 kg/m2 05/11/2024 Blood pressure systolic 124 mm Hg 05/11/20 24 Blood pressure diastolic 80 mm Hg 024 Height 67 in 05/11/2024 Weight 199 lbs 05/11/2024 weight is down 4 pounds [facility] e 11-12-20 Encounters Encounter Location Date Provider Diagnosis Miguel Evans MD [address] [place] [address] [address] [place], [place] [phone] 05/11/2024 Miguel Evans Elevated LDL cholesterol level E78.00 ; Annual physical exam Z00.00 ; Guaiac positive stools R19.5 ; Finger mass, right R22.31 and Depression screening Z13.31 ASSESSMENTS Encounter Date Diagnosis Assessment Notes Treatment Notes Treatment Clinical Notes 05/11/2024 Elevated LDL cholesterol level (ICD-10 - E78.00) stable, will continue to monitor 05/11/2024 Annual physical exam (ICD-10 - Z00.00) labs reviewed and discussed with patient 05/11/2024 Guaiac positive stools (ICD-10 - R19.5) needs urgent appt for colonoscopy 05/11/2024 Finger mass, right (ICD-10 - R22.31) pending diagnostic testing 05/11/2024 Depression screening (ICD-10 - Z13.31) negative screen PLAN OF TREATMENT Treatment Notes Assessment Notes Elevated LDL cholesterol level stable, w ill continue to monitor Annual physical exam labs reviewed and d iscussed with patient Guaiac positive stools needs urgent appt for colonoscopy Finger mass, right pending diagnostic t esting Depression screening negative screen Referrals Referral Date Details 05/30/2024 05/30/2024, guaiac p ositive stools , Vinod Burgess Next Appt Details Follow Up: 1 Year, Reason: Provider Name:Miguel Petit gregorio, 05/08/2025 07:45:00 AM, [address], [address], [place], [place], [phone], Provider Name:Miguel Petit gregorio, 05/15/2025 02:30:00 PM, [address], [address], [place], [place], [phone], Progress Notes * Examination Category Sub-Category Detail Notes General Examination GENERAL APPEARANCE: well dev eloped, well nourished, in no acute distress HEAD: normocephalic, atrau matic EYES: pupils equal, round, reactive to light and accommodation, sclera non- icteric EARS: normal THROAT: clear NECK/THYROID: neck supple, full ra nge of motion, no cervical lymphadenopathy, no bruits HEART: regular rate and rhy thm, S1, S2 normal, no murmurs LUNGS: clear to auscultatio n bilaterally ABDOMEN: soft, nontender, non distended, bowel sounds present, normal, no organomegaly , no masses palpable NEUROLOGIC: nonfocal, motor stre ngth normal upper and lower extremities, sensory exam intact SKIN: warm and dry, no nii picious lesions, abnormal ant chest with mole unchanged about 1/4 in smooth margins EXTREMITIES: no clubbing, cyanosi s, or edema, abnormal rt middle finger with a frim nodule in the second joint MALE GENITOURINARY: circumcised, testes descended bilaterally RECTAL EXAM: normal tone, no exte rnal hemorrhoids, no masses palpable, prostate normal, stool guaiac positive ORAL CAVITY: mucosa moist History and Physical Notes * HPI (History of Present Illness) Category Sub-Category Detail Notes Depression Screening PHQ-9 Little inte rest or pleasure in doing things: Not at all Feeling down, depressed, or hopeless: No t at all Trouble falling or staying asleep, or sl eeping too much: Not at all Feeling tired or having little energy: N ot at all Poor appetite or overeating: Not at all Feeling bad about yourself o r that you are a failure, or have let yourself or your family down: Not at all Trouble concentrating on thi ngs, such as reading the newspaper or watching television: Not at all Moving or speaking so slowly that other people could have noticed; or the opposite, being so fidgety or restless that you have been moving around a lot more than usual: Not at all Thoughts that you would be b elizabeth off or of hurting yourself in some way: Not at all Total Score: 0 Interpretation and Intervention Depression Sonia franz Findings: Negative Follow-Up for Depression: : review of PH Q-9 found negative result, no follow-up needed SDOH Questions SDOH Questions In the past year have you been worried about losing housing?: No In the past year have you or any family members you live with been unable to get any of the following when it was really needed? Check all that apply:: None Communication Needs Communication Needs Does the patient have a hearing impairment: No Does the patient have a vision impairmen t?: Yes ?If yes, what is the vision impairment?: Glasses Does the patient have a cognition impair ment?: No Consultation Request Notes Referral Date Referring Provider Referred Provider Not eva 05/11/2024 Miguel Evans, Vinod medina pos itive stools
--- OUTSIDE RECORDS SUMMARY | 2024-09-29 09:21 | XMS_ITS ---
Author Organization Miguel Evans MD Address [address] [place], [place] [id number] Care Team Providers Care Toll Lineman Name Role Phone Miguel Evans Primary Care Provider [phone] RESULTS Component Value Reference Range Notes Complete Blood Count Auto Di ff Reviewed date:05/04/2024 12:34:45 PM Interpretation: Performing Lab:[facility], [address] [place] [phone] Notes/Report: White Blood Count 5.7 4.8-10.8 X10*3/uL [...] NRBC Abs Auto 0.000 0.0-0.012 X10*3/uL Comprehensive [place]. Panel Fa st Reviewed date:05/04/2024 12:29:22 PM Interpretation: Performing Lab:[address] [phone] Notes/Report: Sodium 140 135-145 mmol/L Potassium 4.1 3.3-5.1 mmol/L Chloride 107 96-108 mmol/L Carbon Dioxide 26 22-29 mmol/L Anion Gap 11 12-20 Blood Urea Nitrogen 15 9-16 mg/dL Creatinine 0.95 0.5-1.4 mg/dL Estimated Glomerular Filt Rate > 60 NOTE: For -[place] individuals, multiply the result by 1.210. Chronic [...] Panel Reviewed date:05/04/2024 12:27:29 PM Interpretation: Performing Lab:[facility], [address] [place] [phone] Notes/Report: Triglycerides 156 <150 mg/dL Desirable Triglyceride: [...] t Reviewed date:05/04/2024 12:35:26 PM Interpretation: Performing Lab:[facility], [address] [place] [phone] Notes/Report: Urine, Clean Catch Color Urine Yellow Appearance Urine Clear PH 5.5 5.0-9.0 Glucose Urine UA Negative Negative mg/dL Urine Blood Negative Negative Specific [place] - Urine 1.010 1.005-1.025 Urine Protein Negative [...] Date Provider Diagnosis Miguel Evans MD [address] [facility] [address] [place] [phone] 05/04/2024 Miguel Evans Blood tests for routine general physical examination Z00.00 and Elevated LDL cholesterol level E78.00 ASSESSMENTS Encounter Date Diagnosis Assessment Notes Treatment Notes Treatment Clinical Notes 05/04/2024 Blood tests for routine general physical examination (ICD-10 - Z00.00) 05/04/2024 Elevated LDL cholesterol level (ICD-10 - E78.00) PLAN OF TREATMENT Next Appt Details Provider Name:Miguel perkins, 05/08/2025 07:45:00 AM, [address] [place] [address], [address], [place], [place], [phone], Provider Name:Miguel perkins, 05/15/2025 02:30:00 PM, [address], [address], [place], [phone],
[2024-09-29 10:17] VITALS: BMI 32.1
[2024-09-29 10:21] VITALS: BP 149/97; PULSE 50; RESP 16; TEMP 36.3; O2SAT 98
[2024-09-29] MEDS: Lactated Ringers 1,000 ML 100 ML IVCONT (10:50)
[2024-09-29 11:39] VITALS: BP 157/88; PULSE 65; RESP 16; TEMP 36.2; O2SAT 98
--- NOTE | 2024-09-29 11:43 | P.BOP_ITS ---
Brief Operative Note Date of Service: 09/29/24 Pre-op diagnosis: Heme + stool Post-op diagnosis: other (Internal hemorrhoids) Procedure: Colonoscopy to the cecum and TI Surgeon: Vinod Burgess MD Anesthesia: MAC Was an Coating Engineer used for this Procedure?: No Estimated blood loss (mL): 0 Pathology: none sent Condition: stable Disposition: PACU
[2024-09-29 11:54] VITALS: BP 137/96; PULSE 58; RESP 16; TEMP 36.2; O2SAT 100
--- NOTE | 2024-09-29 12:08 | OP_ITS ---
DATE OF SERVICE: 09/29/2024 SURGEON: Vinod Burgess MD INDICATIONS: The patient presents for evaluation of heme-positive stool. Full consent has been obtained from him for this, including risks of bleeding and perforation. PREOPERATIVE DIAGNOSIS: Heme-positive stool. POSTOPERATIVE DIAGNOSIS: PROCEDURE PERFORMED: Colonoscopy to the cecum and terminal ileum. ESTIMATED BLOOD LOSS: COMPLICATIONS: ANESTHESIA: Monitored anesthesia care. ASSISTANTS: SPECIMENS: POSTOPERATIVE DIAGNOSES: Heme-positive stool, internal hemorrhoids. DESCRIPTION OF PROCEDURE: The patient was placed in the left lateral decubitus position. The digital rectal exam revealed no abnormalities. The Olympus video pediatric colonoscope was entered into the rectum and advanced easily to the cecum. Once in the cecum, I did identify normal-appearing cecal pouch with appendiceal orifice and a normal-appearing ileocecal valve. The terminal ileum was cannulated and appeared normal. The scope was withdrawn back in the colon. The entire cecum and ileocecal valve appeared normal. The scope was slowly withdrawn assessing all mucosal surfaces carefully. Preparation was excellent. I did not visualize any sign of polyps, colitis, nor angiodysplasias. In the rectum the scope was retroflexed visualizing small internal hemorrhoids, but no other pathology. The rectal mucosa appeared normal. The scope was straightened and withdrawn from the patient. He tolerated the procedure well and was returned to the recovery area in stable condition. IMPRESSION: Internal hemorrhoids, otherwise normal colonoscopy. PLAN: Given today's negative exam and negative family history, I would recommend another colonoscopy for screening purposes jn 10 years. He will otherwise see me in the interim on a p.r.n. basis. MD SHANEL Lloyd/JUNIOR / [id number] MTDThony
== END 2024-09-29 12:29 | disposition home or self-care (01) ==
PROVIDERS: PCP Internal Medicine; Visit Provider Internal Medicine
PROC: 0DJD8ZZ Inspection of Lower Intestinal Tract, Via Natural or Artificial Opening Endoscopic (ICD-10-PCS; CPT 45378; principal; 2024-09-29 10:30)
DX: K64.8 Other hemorrhoids (principal); R19.5 Other fecal abnormalities; Z87.442 Personal history of urinary calculi
CPT/HCPCS: 45378; J2003; J2704

== ENCOUNTER 2025-05-08 11:50 | Outpatient (REF) | payer OTHER, SELFPAY ==
--- OUTSIDE RECORDS SUMMARY | 2024-05-04 03:15 | XMS_ITS ---
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 Role Phone Miguel Evans Primary Care Provider [phone] Results Component Value Reference Range Notes Complete Blood Count Auto Di ff Reviewed date:05/04/2024 12:34:45 PM Interpretation: Performing Lab:[facility], [address] [place] [id number] Notes/Report: White Blood Count 5.7 4.8-10.8 X10*3/uL Red Blood Count 5.04 4.60-5.80 X10*6/uL Hemoglobin 15.5 14.0-18.0 g/dl Hematocrit 45.4 42.0-52.0 % Mean Corpuscular Volume 90.1 80.0-98.0 fL Mean Corpuscular Hemoglobin 30.8 27.0-33.0 pg Mean Corpuscular HGB Conc 34.1 31.0-36.0 g/dl Red Cell Distribution Width 12.7 11.0-16.0 % Platelet Count 274 160-400 X10*3/uL Mean Platelet Volume 11.4 9.4-12.4 fL Neutrophils Percent Auto 46.7 45-73 % Imm Gran Pct Auto 0.3 0.0-0.4 % Lymphocytes Percent Auto 36.4 20-40 % Monocytes Percent Auto 12.9 2-11 % Eosinophils Percent Auto 2.3 0-4 % Basophils Percent Auto 1.4 0-2 % NRBC Pct Auto 0.0 0.0-0.2 /100WBC Neutrophils Absolute Auto 2.7 2.0-8.3 x10*3/u L Imm Gran Abs Auto 0.02 0.00-0.03 X10*3/uL Lymphocytes Absolute Auto 2.1 1.2-4.9 X10*3/u L Monocytes Absolute Auto 0.7 0.1-1.2 X10*3/uL Eosinophils Absolute Auto 0.1 0.0-0.4 X10*3/u L Basophils Absolute Auto 0.1 0.0-0.2 X10*3/uL NRBC Abs Auto 0.000 0.0-0.012 X10*3/uL Comprehensive [place]. Panel Fa st Reviewed date:05/04/2024 12:29:22 PM Interpretation: Performing Lab:[address] [phone] Notes/Report: Sodium 140 135-145 mmol/L Potassium 4.1 3.3-5.1 mmol/L Chloride 107 96-108 mmol/L Carbon Dioxide 26 22-29 mmol/L Anion Gap 11 12-20 Blood Urea Nitrogen 15 9-16 mg/dL Creatinine 0.95 0.5-1.4 mg/dL Estimated Glomerular Filt Rate > 60 NOTE: For -[place] individuals, multiply the result by 1.210. Chronic Kidney Disease: Estimated GFR < 60 mL/min/1.73m2 Severe Kidney Disease: Estimated GFR < 15 mL/min/1.73m2 Glucose Fasting 96 60-99 mg/dL Calcium 9.4 8.4-10.2 mg/dL Bilirubin Total 0.7 0.0-1.0 mg/dL Aspartate Amino Transferase 21 5-37 U/L Alanine Aminotransferase 27 0-40 U/L Total Protein 7.1 6.5-8.0 g/dL Albumin Level 4.6 3.5-5.0 g/dL Alkaline Phosphatase 42 39-117 U/L Lipid Panel Reviewed date:05/04/2024 12:27:29 PM Interpretation: Performing Lab:[facility], [address] [place] [phone] Notes/Report: Triglycerides 156 <150 mg/dL Desirable Triglyceride: less than 150 mg/dL Borderline High Triglyceride 150-199 mg/dL High Triglyceride: 200-499 mg/dL Very High Triglyceride: greater than or equal to 5OO mg/dL Cholesterol 201 <200 mg/dL Desirable Cholesterol: less than 200 mg/dL Borderline High Cholesterol: 200-239 mg/dL High Cholesterol: greater than 239 mg/dL LDL Cholesterol Calculated 128 <100 mg/dL Desirable LDL: less than 100 mg/dL Near Optimal/Above Optimal LDL: 110-129 mg/dL Borderline High LDL: 130-159 mg/dL High LDL: 160-189 mg/dL Very High LDL: greater than or equal to 190 mg/dL HDL Cholesterol 42 >40 mg/dL Desirable HDL: greater than 40 mg/dL Note: This HDL assay may give artificially low results in patients with liver disease. UA ClnCatch+Micro w/rflx Cul t Reviewed date:05/04/2024 12:35:26 PM Interpretation: Performing Lab:[facility], [address] [place] [phone] Notes/Report: Urine, Clean Catch Color Urine Yellow Appearance Urine Clear PH 5.5 5.0-9.0 Glucose Urine UA Negative Negative mg/dL Urine Blood Negative Negative Specific [place] - Urine 1.010 1.005-1.025 Urine Protein Negative Neg-Trace mg/dL Urine Ketones Negative Negative mg/dL Nitrite Urine Negative Negative Leukocyte Esterase Urine Negative Negative RBC Urine 0-2 0-2 /HPF WBC Urine 0-5 0-5 /HPF Squamous Epithelial Cell Urine 0-2 0-2 /HPF Bacteria Urine None Seen None Seen Hyaline Casts Urine 0-2 0-2 /LPF REASON FOR VISIT yearly fasting labs Encounters Encounter Location Date Provider Diagnosis Miguel Evans MD [address] [place] [phone] 05/04/2024 Miguel Evans Blood tests for routine general physical examination Z00.00 and Elevated LDL cholesterol level E78.00 Assessments Encounter Date Diagnosis (ICD Code) Assessment Notes Treatment Notes Treatment Clinical Notes Section Notes 05/04/2024 Blood tests for routine general physical examination (ICD-10 - Z00.00) 05/04/2024 Elevated LDL cholesterol level (ICD-10 - E78.00) Plan Of Treatment Next Appt Details Provider Name:Miguel perkins, 05/15/2025 02:30:00 PM, [address] [facility], [address], [place], [place], [phone], Progress Notes * Thien BANDA FDOB:[birth year] (44 yo M)Acc No.[id number]:05/04/2024 Progress Note Patient: Thien RICE Provider: Michael Evans MD :1980 A ge:43 Y S ex:Male Date:05/04/2024 Address:[address] [place] [address], [place], [id number] Subjective: * Chief Complaints: * 1 . Yearly fasting labs. * Medical History: Objective: * Vitals: Assessment: * Assessment: 1. B lood tests for routine general physical examination - Z00.00 (Primary) 2 .?Elevated LDL cholesterol level - E78.00 Plan: * Treatment: 2. E levated LDL cholesterol level L AB: PSA,Total (Free>4and<10) (Order Cancelled) L AB: Complete Blood Count Auto Diff (Collection Date & Time - 05/04/2024 07:15 AM) L AB: Comprehensive [place]. Panel Fast (Collection Date & Time - 05/04/2024 07:15 AM) L AB: Lipid Panel (Collection Date & Time - 05/04/2024 07:15 AM) L AB: UA ClnCatch+Micro w/rflx Cult (Collection Date & Time - 05/04/2024 07:15 AM) * Procedure Codes: 3 6415 VENIPUNCT, ROUTINE* * * The named appointment provid er may or may not be the originator of this progress note, and it is not deemed complete until electronically signed by the appointment provider. Sign off status: Pending * Provider: Michael Evans MD Date: 0 05/04/2024 Generated for Shagufta morton/Edvin/Francisitting on: 05/08/2025 01:22 PM EDT
[2025-05-08 11:53] LABS: MANUAL DIFF FLAG NO
[2025-05-08 12:17] LABS: Appearance Urine Clear; Glucose Urine UA Negative (Negative); PH 5.5 (5.0-9.0); Specific Gravity - Urine 1.010 (1.005-1.025)
[2025-05-08 12:18] LABS: Hematocrit 44.7 % (42.0-52.0); Hemoglobin 15.1 g/dl (14.0-18.0); Imm Gran Abs Auto 0.03 X10*3/uL (0.00-0.03); Imm Gran Pct Auto 0.5 % (0.0-0.4); Lymphocytes Absolute Auto 2.2 X10*3/uL (1.2-4.9); Mean Corpuscular HGB Conc 33.8 g/dl (31.0-36.0); Mean Corpuscular Hemoglobin 30.5 pg (27.0-33.0); Mean Corpuscular Volume 90.3 fL (80.0-98.0); NRBC Abs Auto 0.000 X10*3/uL (0.0-0.012); NRBC Pct Auto 0.0 /100WBC (0.0-0.2); Platelet Count 257 X10*3/uL (160-400); Red Blood Count 4.95 X10*6/uL (4.60-5.80); White Blood Count 5.9 X10*3/uL (4.8-10.8)
[2025-05-08 12:35] LABS: Alanine Aminotransferase 31 U/L (0-40); Albumin Level 4.6 g/dL (3.5-5.0); Alkaline Phosphatase 44 U/L (39-117); Anion Gap 13 (12-20); Aspartate Amino Transferase 29 U/L (5-37); Blood Urea Nitrogen 12 mg/dL (9-16); Calcium 9.3 mg/dL (8.4-10.2); Carbon Dioxide 25 mmol/L (22-29); Chloride 106 mmol/L (96-108); Cholesterol 211 mg/dL (<200); Estimated Glomerular Filt Rate > 60; HDL Cholesterol 43 mg/dL (>40); Potassium 4.3 mmol/L (3.3-5.1); Sodium 140 mmol/L (135-145); Total Protein 6.9 g/dL (6.5-8.0); Triglycerides 148 mg/dL (<150)
[2025-05-08 12:58] LABS: PSA,Total (Free>4and<10) 1.48 ng/mL (0.00-4.00)
--- OUTSIDE RECORDS SUMMARY | 2025-05-08 13:22 | XMS_ITS | Patient Health Record ---
Author Organization [facility] Address [address] [place] [phone] Care Team Providers Care Computer Recycling Worker Name Role Phone Miguel Evans MD Primary Care Provider Vinod Aguirre Unavailable [phone] Allergies No Known Allergies Reason For Referral No Information Social History Tobacco Use: Social History Observation Description Date Details (start date - stop date) Never Smoker NA - NA Tobacco Use/Smoking Question Answer Notes Patient is a nonsmoker Alcohol Screen Question Answer Notes Did you have a drink containing alcohol in the p ast year? No Points 0 Interpretation Negative Section Notes: No sig alcohol Problems Problem Type SNOMED Code ICD Code Onset Dates Problem Status W/U Status Risk Notes Problem Other fecal abnormalities (R19.5) Active confirmed Vital Signs Blood pressure diastolic 00 mm Hg 05/30/2024 Height 5 ft 6 in in 05/30/2024 Blood pressure systolic 00 mm Hg 05/30/2024 Weight 202 lbs 05/30/2024 BMI 32.60 kg/m2 05/30/2024 Encounters Encounter Location Date Provider Diagnosis [facility] [address] [place], [place] [phone] 09/29/2024 Vinod Burgess Heme positive stool R19.5 and Other hemorrhoids K64.8 [facility] [address] [place] [phone] 05/30/2024 Vinod Burgess Other fecal abnormalities R19.5 Assessments Encounter Date Diagnosis (ICD Code) Assessment Notes Treatment Notes Treatment Clinical Notes Section Notes 09/29/2024 Other hemorrhoids (ICD-10 - K64.8) 09/29/2024 Heme positive stool (ICD-10 - R19.5) 05/30/2024 Other fecal abnormalities (ICD-10 - R19.5) Overall, Thien appears quite well. He is not having any new or worrisome GI complaints and his laboratories do not show any worrisome changes such as anemia. Nonetheless, given the finding of heme-positive stool I did recommend a colonoscopy for further evaluation to rule out polyps or any other lesions. We did review the possibility that this may reflect a false positive test, but nonetheless given his age I would definitely recommend a colonoscopy for definitive evaluation. We did review the rationale for the colonoscopy in regard to colorectal cancer prevention and/or early detection. Full consent is obtained for this, including risks of bleeding and perforation. The procedure will be done with monitored anesthesia care. Thien was comfortable with this plan. Thank you again for allowing me to participate in Thien's care. I shall continue to keep you advised of his progress. Plan Of Treatment Future Test Test Name Order Date COLONOSCOPY 05/30/2024 Insurance Providers Payer Name Payer Address Payer Phone Subscriber Number Group Number Insured Name Patient Relationship to Insured Coverage Start Date Coverage End Date [facility] [address] [place] [phone] [id number] THIEN BANDA Self - patient is the insured Medical (General) History Medical History History ICD Code Kidney stone Denies NC,DM,CVA,Lung disease,renal dise ase Surgical History Surgery Date(Month/Year)
== END 2025-05-08 11:51 | disposition home or self-care (01) ==
LOC: HO.LNP 11:50
PROVIDERS: Visit Provider Internal Medicine
DX: Z00.00 Encounter for general adult medical examination without abnormal findings (principal); E78.00 Pure hypercholesterolemia, unspecified; Z12.5 Encounter for screening for malignant neoplasm of prostate
CPT/HCPCS: 80053; 80061; 81001; 84153; 85025